=== PATIENT | male | born 1990 | race African-American/Black ===

== ENCOUNTER 2016-11-09 12:34 | Emergency (ER) | payer MEDICAID, OTHER ==
[~2016-11-09] VITALS: Ht 180.3 cm; Wt 84.0 kg
[2016-11-09 12:42] VITALS: Ht 180.3 cm; Wt 84.0 kg
== END 2016-11-09 15:15 | disposition left against medical advice (07) ==
LOC: FTE 12:34
DX: Z53.21 Procedure and treatment not carried out due to patient leaving prior to being seen by health care provider (principal)